=== PATIENT | male | born 1950 | race Caucasian/White ===

== ENCOUNTER → 2016-04-17 | Outpatient (CLI) | payer MEDICARE, OTHER ==
--- NOTE | 2016-04-17 10:31 | US ---
EXAMINATION TYPE: US thyroid st tissue head/neck DATE OF EXAM: 04/17/2016 10:16 AM COMPARISON: 10/19/2015 CLINICAL HISTORY: E04.1 Thyroid Nodule. 6 month follow up GLAND SIZE: Right Lobe: 3.8 x 1.1 x 1.8cm Overall Parenchyma: homogenous Left Lobe: 3.6 x 1.2 x 1.5cm Overall Parenchyma: homogeneous Isthmus Thickness: 0.5 cm NODULES RIGHT: # of nodules measured on right: 1 1. 0.4 X 0.4 x 0.3 cm cystic nodule at the mid pole with well-defined margins. This nodule is wider than tall and shows no intranodular vascularity. Prior size: 0.4 x 0.4 x 0.3cm LEFT: # of nodules measured on left: 0 ISTHMUS: # of nodules measured in the isthmus: 0 IMPRESSION: Bilateral neck scanned, no abnormal lymphadenopathy noted. Stable appearing cystic nodu le seen on the right.
== END ==
LOC: RADUSWWP 10:00
PROVIDERS: ATTEND Family Medicine
DX: E04.1 Nontoxic single thyroid nodule (principal)
CPT/HCPCS: 76536

== ENCOUNTER → 2016-10-13 | Outpatient (CLI) | payer MEDICARE, OTHER ==
--- NOTE | 2016-10-13 15:54 | US ---
EXAMINATION TYPE: US thyroid st tissue head/neck DATE OF EXAM: 10/13/2016 COMPARISON: Previous study dated 04/17/2016. CLINICAL HISTORY: Nodule E04.1. GLAND SIZE: Right Lobe: 3.3 x 1.4 x 1.6 cm Overall Parenchyma: homogenous Left Lobe: 3.9 x 1.1 x 1.6 cm Overall Parenchyma: homogeneous Isthmus Thickness: 0.4 cm NODULES RIGHT: # of nodules measured on right: 1 1. 0.5 X 0.3 x 0.5 cm hypoechoic cystic nodule at the mid pole with well-defined margins; . This n odule is wider than tall and shows . Prior size: 0.4 x 0.4 x 0.3 cm LEFT: # of nodules measured on left: 0 ISTHMUS: # of nodules measured in the isthmus: 0 Bilateral neck scanned, no evidence of lymphadenopathy. Nodule as described IMPRESSION: STABLE RIGHT-SIDED THYROID NODULE.
== END | disposition home or self-care (01) ==
LOC: RADUSWWP 15:18
PROVIDERS: ATTEND Family Medicine
DX: E04.1 Nontoxic single thyroid nodule (principal)
CPT/HCPCS: 76536

== ENCOUNTER → 2017-04-22 | Outpatient (CLI) | payer MEDICARE, OTHER ==
--- NOTE | 2017-04-22 10:45 | US ---
EXAMINATION TYPE: US thyroid st tissue head/neck DATE OF EXAM: 04/22/2017 COMPARISON: US CLINICAL HISTORY: E04.1 Nontoxic Single Thyroid Nodule. GLAND SIZE: Right Lobe: 3.4 x 1.3 x 1.4 cm Overall Parenchyma: homogenous Left Lobe: 2.8 x 1.1 x 1.9 cm Overall Parenchyma: homogeneous Isthmus Thickness: 0.2 cm NODULES RIGHT: # of nodules measured on right: 1 1. 0.5 X 0.3 x 0.5 cm anechoic cystic nodule at the mid pole with well-defined margins. This nodul e is wider than tall and shows no intranodular vascularity. Prior size: 0.5 X 0.3 x 0.5 cm LEFT: # of nodules measured on left: 0 ISTHMUS: # of nodules measured in the isthmus: 0 Bilateral neck scanned, no evidence of lymphadenopathy. 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
== END | disposition home or self-care (01) ==
LOC: RADUSWWP 09:10
PROVIDERS: ATTEND Family Medicine
DX: E04.1 Nontoxic single thyroid nodule (principal)
CPT/HCPCS: 76536

== ENCOUNTER 2017-05-03 07:34 | Day surgery (SDC) | payer MEDICARE, OTHER ==
[2017-04-30 08:51] VITALS: BMI 37.2
[~2017-05-03 07:34] MED LIST: LACTATED RINGERS 1,000 ML IV SCH
[2017-05-03 08:03] VITALS: RESP 16; TEMP 98.2
[2017-05-03] MEDS ORDERED: LIDOCAINE 1% 20 ML VIAL (10MG/ML) FOR IV START INTRADERMA ONE (08:10)
[2017-05-03 08:14] LABS: Glucose,Whole Blood 156 mg/dL (75-99)
[2017-05-03] MEDS ORDERED: PROPOFOL 10 MG/ML 20 ML VIAL IV ONE (08:41)
--- NOTE | 2017-05-03 09:10 | P.PCN ---
Date of Procedure: 05/03/17 Procedure(s) Performed: Procedure: Total colonoscopy. Preoperative diagnosis: Screening for neoplasia. Postoperative diagnosis: Sigmoid diverticulosis with no evidence of acute diverticulitis, strictures, polyps or cancer. Preparation: HalfLytely prep. Sedation: Was provided by anesthesia. Brief clinical history: The patient is a 66-year-old male who is referred for this evaluation for screening for neoplasia age being his risk factor. He had a prior exam around 10 years ago. At this time, he has no abdominal complaints , bleeding or anemia. Procedure: With the patient on his left lateral decubitus position and after informed consent and adequate sedation, the perianal area was inspected and it did not show any fissures or fistulas. There were no masses felt on digital rectal examination. The Olympus CFQ 160L: Video colonoscope was then inserted in the rectum in the usual fashion and advanced to the cecum. There were multiple diverticular orifices seen scattered in the sigmoid with no evidence of acute diverticulitis or strictures. The mucosa appeared healthy. No polyps or tumors were seen. I retroflexed the endoscope in the rectum before the endoscope was withdrawn. The patient tolerated the procedure well. Plan: The patient was reassured. Discussed dietary measures. He will follow up with you as planned and I recommended repeat exam in 10 years.
[2017-05-03 09:28] VITALS: BP 110/68; PULSE 78
== END 2017-05-03 09:51 | disposition home or self-care (01) ==
LOC: ORWHC2ENDO 07:34
DX: Z12.11 Encounter for screening for malignant neoplasm of colon (principal); K57.30 Diverticulosis of large intestine without perforation or abscess without bleeding; I10 Essential (primary) hypertension; E78.5 Hyperlipidemia, unspecified; E11.9 Type 2 diabetes mellitus without complications; E07.9 Disorder of thyroid, unspecified; E66.01 Morbid (severe) obesity due to excess calories; Z79.84 Long term (current) use of oral hypoglycemic drugs; Z79.899 Other long term (current) drug therapy; Z68.37 Body mass index [BMI] 37.0-37.9, adult
CPT/HCPCS: J2704; G0121

== ENCOUNTER 2017-12-01 14:38 | Inpatient (IN) | payer MEDICARE, OTHER ==
[2017-12-01] MEDS ORDERED: SODIUM CHLORIDE 0.9% 1,000 ML IV STA ×2 (15:30)
[2017-12-01 15:45] LABS: Basophils % (A) 0 %; Eosinophils # (A) 0.1 k/uL (0-0.7); Eosinophils % (A) 1 %; HCT 46.1 % (39.0-53.0); HGB 14.7 gm/dL (13.0-17.5); Lymphocytes # (A) 1.5 k/uL (1.0-4.8); Lymphocytes % (A) 15 %; MCH 32.4 pg (25.0-35.0); MCV 101.2 fL (80.0-100.0); Macrocytosis Slight; Mean Platelet Volume 9.1; Monocytes # (A) 0.5 k/uL (0-1.0); Monocytes % (A) 5 %; Neutrophils # (A) 7.8 k/uL (1.3-7.7); Neutrophils % (A) 77 %; Platelet Count 153 k/uL (150-450); RBC 4.56 m/uL (4.30-5.90); RDW 14.1 % (11.5-15.5)
--- NOTE | 2017-12-01 15:58 | ED ---
Arrhythmia/Palpitations HPI <Ronald Cortez - Last Filed: 12/01/17 18:26> - General Source: patient, RN notes reviewed, old records reviewed Mode of arrival: wheelchair Limitations: no limitations <Melani Sandoval - Last Filed: 12/01/17 18:44> - General Chief Complaint: Arrhythmia/Palpitations Stated Complaint: tachycardia Time Seen by Provider: 12/01/17 15:25 - History of Present Illness Initial Comments: Patient is a 67-year-old male presents to return today was 2. of elevated heart rate. He was sent by his PCP. He had an outpatient physical exam today and they found that his heart rate was 140-1 50 bpm. He has no previous cardiac history. He denies any symptoms associated with a high heart rate including dizziness, recent fever or chills, he denies any chest pain. He denies shortness of breath. Patient denies any recent fever, chills, shortness of breath, chest pain, back pain, abdominal pain, nausea vomiting, numbness or tingling, dysuria or hematuria, constipation or diarrhea, headaches or visual changes, or any other current symptoms (Melani Sandoval) - Related Data Home Medications Medication Instructions Recorded Confirmed Atenolol [Tenormin] 25 mg PO BID 04/30/17 12/01/17 Levothyroxine Sodium [Synthroid] 75 mcg PO DAILY 04/30/17 12/01/17 Lovastatin [Mevacor] 40 mg PO DAILY 04/30/17 12/01/17 Multivitamins, Thera [Multivitamin 1 tab PO DAILY 04/30/17 12/01/17 (formulary)] amLODIPine BESYLATE/BENAZEPRIL 1 cap PO DAILY 04/30/17 12/01/17 [Lotrel 5-20 mg Capsule] metFORMIN HCL [Glucophage] 1,000 mg PO BID 04/30/17 12/01/17 Allergies Allergy/AdvReac Type Severity Reaction Status Date / Time No Known Allergies Allergy Verified 12/01/17 15:06 Review of Systems ROS Other: All systems not noted in ROS Statement are negative. <Ronald Cortez - Last Filed: 12/01/17 18:26> ROS Other: All systems not noted in ROS Statement are negative. <Melani Sandoval - Last Filed: 12/01/17 18:44> ROS Statement: Those systems with pertinent positive or pertinent negative responses have been documented in the HPI. Past Medical History Past Medical History: Diabetes Mellitus, Thyroid Disorder Additional Past Medical History / Comment(s): irreglular heartbeat, History of Any Multi-Drug Resistant Organisms: None Reported Past Surgical History: Orthopedic Surgery, Tonsillectomy Additional Past Surgical History / Comment(s): eye surgery for cross eyed, left knee surgery Past Anesthesia/Blood Transfusion Reactions: No Reported Reaction Past Psychological History: No Psychological Hx Reported Smoking Status: Former smoker Past Alcohol Use History: None Reported Past Drug Use History: None Reported - Past Family History Mother Family Medical History: No Reported History <Melani Sandoval - Last Filed: 12/01/17 18:44> General Exam <Ronald Cortez - Last Filed: 12/01/17 18:26> Limitations: no limitations General appearance: alert, in no apparent distress Head exam: Present: atraumatic, normocephalic, normal inspection Eye exam: Present: normal appearance, PERRL, EOMI. Absent: scleral icterus, conjunctival injection, periorbital swelling ENT exam: Present: normal exam, mucous membranes moist Neck exam: Present: normal inspection. Absent: tenderness, meningismus, lymphadenopathy Respiratory exam: Present: normal lung sounds bilaterally. Absent: respiratory distress, wheezes, rales, rhonchi, stridor Cardiovascular Exam: Present: regular rate, normal rhythm, normal heart sounds. Absent: systolic murmur, diastolic murmur, rubs, gallop, clicks GI/Abdominal exam: Present: soft, normal bowel sounds. Absent: distended, tenderness, guarding, rebound, rigid Extremities exam: Present: normal inspection, full ROM, normal capillary refill. Absent: tenderness, pedal edema, joint swelling, calf tenderness Back exam: Present: normal inspection Neurological exam: Present: alert, oriented X3, CN II-XII intact Psychiatric exam: Present: normal affect, normal mood <Melani Sandoval - Last Filed: 12/01/17 18:44> - General Exam Comments Initial Comments: 67-year-old male presents raise department today. He is well-appearing. Appears in no distress. (Melani Sandoval) Vital Signs 12/01/17 12/01/17 12/01/17 14:47 15:25 15:27 Temperature 98.1 F Pulse Rate 144 H 138 H Respiratory 18 16 Rate Blood Pressure 151/94 131/97 O2 Sat by Pulse 98 96 Oximetry 12/01/17 12/01/17 12/01/17 16:06 16:50 17:55 Temperature Pulse Rate 137 H 134 H 140 H Respiratory 18 18 18 Rate Blood Pressure 137/97 136/94 131/97 O2 Sat by Pulse 97 97 95 Oximetry 12/01/17 18:19 Temperature Pulse Rate 122 H Respiratory 18 Rate Blood Pressure 122/96 O2 Sat by Pulse 96 Oximetry Medical Decision Making - Lab Data Result diagrams: 12/01/17 15:25 12/01/17 15:25 <Ronald Cortez - Last Filed: 12/01/17 18:26> - Lab Data Result diagrams: 12/01/17 15:25 12/01/17 15:25 - Radiology Data Radiology results: report reviewed <Melani Sandoval - Last Filed: 12/01/17 18:44> - Medical Decision Making Patient reevaluated by myself, Dr. Cortez. Patient remains tachycardic with a heart rate around 136. Patient updated on results and plan. Case was discussed with practitioner Lesly, covering for Dr. Diaz, who is covering for Dr. Whitney, who will admit for Dr. Mishra. Cardiology will be placed on consult. (Ronald Cortez) Patient 67-year-old male presents risk for asymptomatic tachycardia. Patient's heart rate is 140-1 45 bpm. He denies any chest pain or symptoms associated with this. Patient's labwork was reviewed today and all unremarkable. He did have a mildly elevated D d-dimer. This present stated this did a computed tomography scan of his chest. There is evidence of a thoracic aortic aneurysm measuring 4.4 cm. Again he denies any chest or back pain. Patient continued to be tachycardic despite IV fluids and we did give Patient initially IV dose of Lopressor. After Patient went back to me to be tachycardic in 140 bpm. And the family initiated Cardizem bolus and Cardizem drip. Patient will be admitted to selective floor with consult to cardiology and cardiothoracic surgery. (Melani Sandoval) - Lab Data Lab Results 12/01/17 12/01/17 12/01/17 Range/Units 15:25 15:25 15:25 WBC 10.0 (3.8-10.6) k/uL RBC 4.56 (4.30-5.90) m/uL Hgb 14.7 (13.0-17.5) gm/dL Hct 46.1 (39.0-53.0) % MCV 101.2 H (80.0-100.0) fL MCH 32.4 (25.0-35.0) pg MCHC 32.0 (31.0-37.0) g/dL RDW 14.1 (11.5-15.5) % Plt Count 153 (150-450) k/uL Neutrophils % 77 % Lymphocytes % 15 % Monocytes % 5 % Eosinophils % 1 % Basophils % 0 % Neutrophils # 7.8 H (1.3-7.7) k/uL Lymphocytes # 1.5 (1.0-4.8) k/uL Monocytes # 0.5 (0-1.0) k/uL Eosinophils # 0.1 (0-0.7) k/uL Basophils # 0.0 (0-0.2) k/uL Macrocytosis Slight PT (9.0-12.0) sec INR (<1.2) APTT (22.0-30.0) sec D-Dimer (<0.60) mg/L FEU Sodium 138 (137-145) mmol/L Potassium 4.9 (3.5-5.1) mmol/L Chloride 102 (98-107) mmol/L Carbon Dioxide 24 (22-30) mmol/L Anion Gap 12 mmol/L BUN 17 (9-20) mg/dL Creatinine 0.72 (0.66-1.25) mg/dL Est GFR (CKD-EPI)AfAm >90 (>60 ml/min/1.73 sqM) Est GFR (CKD-EPI)NonAf >90 (>60 ml/min/1.73 sqM) Glucose 137 H (74-99) mg/dL Calcium 9.9 (8.4-10.2) mg/dL Magnesium 1.6 (1.6-2.3) mg/dL Total Bilirubin 0.8 (0.2-1.3) mg/dL AST 25 (17-59) U/L ALT 23 (21-72) U/L Alkaline Phosphatase 54 (38-126) U/L Total Creatine Kinase 47 L (55-170) U/L CK-MB (CK-2) 1.0 (0.0-2.4) ng/mL CK-MB (CK-2) Rel Index 2.1 Troponin I <0.012 (0.000-0.034) ng/mL Total Protein 7.5 (6.3-8.2) g/dL Albumin 4.3 (3.5-5.0) g/dL TSH (0.465-4.680) mIU/L Urine Color Urine Appearance (Clear) Urine pH (5.0-8.0) Ur Specific [place] (1.001-1.035) Urine Protein (Negative) Urine Glucose (UA) (Negative) Urine Ketones (Negative) Urine Blood (Negative) Urine Nitrite (Negative) Urine Bilirubin (Negative) Urine Urobilinogen (<2.0) mg/dL Ur Leukocyte Esterase (Negative) 12/01/17 12/01/17 12/01/17 Range/Units 15:25 15:25 15:25 WBC (3.8-10.6) k/uL RBC (4.30-5.90) m/uL Hgb (13.0-17.5) gm/dL Hct (39.0-53.0) % MCV (80.0-100.0) fL MCH (25.0-35.0) pg MCHC (31.0-37.0) g/dL RDW (11.5-15.5) % Plt Count (150-450) k/uL Neutrophils % % Lymphocytes % % Monocytes % % Eosinophils % % Basophils % % Neutrophils # (1.3-7.7) k/uL Lymphocytes # (1.0-4.8) k/uL Monocytes # (0-1.0) k/uL Eosinophils # (0-0.7) k/uL Basophils # (0-0.2) k/uL Macrocytosis PT 11.2 (9.0-12.0) sec INR 1.2 H (<1.2) APTT 24.4 (22.0-30.0) sec D-Dimer 0.74 H (<0.60) mg/L FEU Sodium (137-145) mmol/L Potassium (3.5-5.1) mmol/L Chloride (98-107) mmol/L Carbon Dioxide (22-30) mmol/L Anion Gap mmol/L BUN (9-20) mg/dL Creatinine (0.66-1.25) mg/dL Est GFR (CKD-EPI)AfAm (>60 ml/min/1.73 sqM) Est GFR (CKD-EPI)NonAf (>60 ml/min/1.73 sqM) Glucose (74-99) mg/dL Calcium (8.4-10.2) mg/dL Magnesium (1.6-2.3) mg/dL Total Bilirubin (0.2-1.3) mg/dL AST (17-59) U/L ALT (21-72) U/L Alkaline Phosphatase (38-126) U/L Total Creatine Kinase (55-170) U/L CK-MB (CK-2) (0.0-2.4) ng/mL CK-MB (CK-2) Rel Index Troponin I (0.000-0.034) ng/mL Total Protein (6.3-8.2) g/dL Albumin (3.5-5.0) g/dL TSH 4.150 (0.465-4.680) mIU/L Urine Color Urine Appearance (Clear) Urine pH (5.0-8.0) Ur Specific [place] (1.001-1.035) Urine Protein (Negative) Urine Glucose (UA) (Negative) Urine Ketones (Negative) Urine Blood (Negative) Urine Nitrite (Negative) Urine Bilirubin (Negative) Urine Urobilinogen (<2.0) mg/dL Ur Leukocyte Esterase (Negative) 12/01/17 Range/Units 16:41 WBC (3.8-10.6) k/uL RBC (4.30-5.90) m/uL Hgb (13.0-17.5) gm/dL Hct (39.0-53.0) % MCV (80.0-100.0) fL MCH (25.0-35.0) pg MCHC (31.0-37.0) g/dL RDW (11.5-15.5) % Plt Count (150-450) k/uL Neutrophils % % Lymphocytes % % Monocytes % % Eosinophils % % Basophils % % Neutrophils # (1.3-7.7) k/uL Lymphocytes # (1.0-4.8) k/uL Monocytes # (0-1.0) k/uL Eosinophils # (0-0.7) k/uL Basophils # (0-0.2) k/uL Macrocytosis PT (9.0-12.0) sec INR (<1.2) APTT (22.0-30.0) sec D-Dimer (<0.60) mg/L FEU Sodium (137-145) mmol/L Potassium (3.5-5.1) mmol/L Chloride (98-107) mmol/L Carbon Dioxide (22-30) mmol/L Anion Gap mmol/L BUN (9-20) mg/dL Creatinine (0.66-1.25) mg/dL Est GFR (CKD-EPI)AfAm (>60 ml/min/1.73 sqM) Est GFR (CKD-EPI)NonAf (>60 ml/min/1.73 sqM) Glucose (74-99) mg/dL Calcium (8.4-10.2) mg/dL Magnesium (1.6-2.3) mg/dL Total Bilirubin (0.2-1.3) mg/dL AST (17-59) U/L ALT (21-72) U/L Alkaline Phosphatase (38-126) U/L Total Creatine Kinase (55-170) U/L CK-MB (CK-2) (0.0-2.4) ng/mL CK-MB (CK-2) Rel Index Troponin I (0.000-0.034) ng/mL Total Protein (6.3-8.2) g/dL Albumin (3.5-5.0) g/dL TSH (0.465-4.680) mIU/L Urine Color Yellow Urine Appearance Clear (Clear) Urine pH 6.5 (5.0-8.0) Ur Specific [place] 1.011 (1.001-1.035) Urine Protein Trace H (Negative) Urine Glucose (UA) Negative (Negative) Urine Ketones Negative (Negative) Urine Blood Negative (Negative) Urine Nitrite Negative (Negative) Urine Bilirubin Negative (Negative) Urine Urobilinogen <2.0 (<2.0) mg/dL Ur Leukocyte Esterase Negative (Negative) 12/01/17 15:59 EKG performed at 1504 shows sinus tachycardia) axis, inferior infarct noted. Ventricularly of 141 bpm. Intervals 144 ms. QRS ration 86 ms. QT QTc is 282/431 ms. 12/01/17 16:01 (Melani Sandoval) - Radiology Data Aneurysm of the ascending aorta. No evidence of pulmonary embolus in. It measures 4.4 cm. No dissection. No mediastinal adenopathy. Multiple cysts in the liver that are 4.27 m. No pericardial effusion. Hypertrophic spurring thoracic spine. No bony process. (Melani Sandoval) Disposition <Ronald Cortez - Last Filed: 12/01/17 18:26> Is patient prescribed a controlled substance at d/c from ED?: No Time of Disposition: 18:44 <Melani Sandoval - Last Filed: 12/01/17 18:44> Clinical Impression: Tachycardia, Thoracic aneurysm without mention of rupture Disposition: ADMITTED IP TO THIS HOSP Condition: Stable Referrals: Edison Mishra DO [Primary Care Provider] - 1-2 days
[2017-12-01 16:11] LABS: ALT 23 U/L (21-72); AST 25 U/L (17-59); Albumin 4.3 g/dL (3.5-5.0); Alkaline Phosphatase 54 U/L (38-126); Anion Gap 12 mmol/L; Blood Urea Nitrogen 17 mg/dL (9-20); Calcium 9.9 mg/dL (8.4-10.2); Carbon Dioxide 24 mmol/L (22-30); Chloride 102 mmol/L (98-107); Creatine Kinase 47 U/L (55-170); Glucose 137 mg/dL (74-99); INR 1.2 (<1.2); Magnesium 1.6 mg/dL (1.6-2.3); Partial Thromboplastin Time 24.4 sec (22.0-30.0); Potassium 4.9 mmol/L (3.5-5.1); Prothrombin Time 11.2 sec (9.0-12.0); Sodium 138 mmol/L (137-145); Total Bilirubin 0.8 mg/dL (0.2-1.3); Total Protein 7.5 g/dL (6.3-8.2)
--- NOTE | 2017-12-01 16:13 | XR ---
EXAMINATION TYPE: XR chest 2V DATE OF EXAM: 12/01/2017 COMPARISON: Prior chest x-ray is unavailable HISTORY: Dysrhythmia TECHNIQUE: Frontal and lateral views of the chest are obtained on 4 images. FINDINGS: There is no focal air space opacity, pleural effusion, or pneumothorax seen. The cardiac silhouette size is within normal limits. Patient is rotated. There are overlying cardiac leads. The osseous structures are intact. IMPRESSION: No acute cardiopulmonary process.
[2017-12-01 16:22] LABS: Troponin I <0.012 ng/mL (0.000-0.034)
[2017-12-01 16:44] LABS: Appearance,Urine Clear (Clear); Bilirubin,Urine Negative (Negative); Blood,Urine Negative (Negative); Color,Urine Yellow; Glucose,Urine (UA) Negative (Negative); Ketones,Urine Negative (Negative); Leukocyte Esterase,Urine Negative (Negative); Nitrite,Urine Negative (Negative); PH, Urine 6.5 (5.0-8.0); Protein,Urine Trace (Negative); Specific Gravity,Urine 1.011 (1.001-1.035); Urobilinogen,Urine <2.0 mg/dL (<2.0)
--- NOTE | 2017-12-01 17:41 | CT ---
EXAMINATION TYPE: CT chest angio for PE DATE OF EXAM: 12/01/2017 COMPARISON: None HISTORY: Rapid heart rate today. CT DLP: 636.9 mGycm Automated exposure control for dose reduction was used. CONTRAST: CT Chest for pulmonary embolism performed with with IV Contrast, patient injected with 100 mL of Isov ue 370. FINDINGS: There are 3-D post processed images. There is mild aneurysm of the ascending aorta measures 4.4 cm. There is no dissection. There is no me diastinal adenopathy. There are no hilar masses. I see no filling defects in the pulmonary arteries. There is normal contrast opacification of the pulmonary arteries. 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 The other lung valerio are clear. There is no evidence of a pulmonary mass. There i s no pleural effusion. There are multiple cysts in the liver that measure up to 4.2 cm. There is no pericardial effusion. Th ere is hypertrophic spurring in the thoracic spine. I see no bony destructive process. IMPRESSION: Aneurysm of the ascending aorta. No evidence of pulmonary embolism.
[2017-12-01] MEDS ORDERED: METOPROLOL TARTRATE 5 MG/5 ML VIAL IVP STA (17:49)
[2017-12-01] MEDS ORDERED: DILTIAZEM DRIP BOLUS FROM BAG 1 MG SOLN IV ONE ×2 (18:40→19:42)
[2017-12-01] MEDS ORDERED: oxyCODONE-APAP 5-325MG 1 EACH TAB PO PRN (18:44)
[2017-12-01] MEDS ORDERED: NALOXONE 0.4 MG/ML 1 ML VIAL IV PRN (18:44)
[2017-12-01] MEDS ORDERED: traMADol 50 MG TAB PO PRN (18:44)
[2017-12-01] MEDS ORDERED: ACETAMINOPHEN TAB 325 MG TAB PO PRN (18:44)
[2017-12-01] MEDS ORDERED: IBUPROFEN 400 MG TAB PO PRN (18:44)
[2017-12-01] MEDS: DILTIAZEM 50 MG in SODIUM CHLORIDE 0.9% 40 ML IV SCH ×2 (18:59→23:59)
[2017-12-01] MEDS ORDERED: SODIUM CHLORIDE 0.9% 1,000 ML IV ONE (19:40)
[2017-12-01 22:48] LABS: Creatine Kinase 53 U/L (55-170)
[2017-12-01 23:01] LABS: Creatine Kinase MB 0.9 ng/mL (0.0-2.4); Troponin I <0.012 ng/mL (0.000-0.034)
[2017-12-02] MEDS: SODIUM CHLORIDE 0.9% 1,000 ML IV SCH ×4 (00:46→22:59)
[2017-12-02] MEDS ORDERED: HEPARIN SODIUM,PORCINE 5,000 UNIT/ML 1 ML VIAL IV ONE (01:25)
[2017-12-02] MEDS ORDERED: HEPARIN SODIUM,PORCINE 5,000 UNIT/ML 1 ML VIAL IV PRN (01:25)
[2017-12-02] MEDS ORDERED: HEPARIN SOD,PORK IN 0.45% NACL 25,000 UNIT in 0.45% NACL 1 500ML.BAG IV SCH ×2 (01:30→01:56)
[2017-12-02] MEDS: HEPARIN SOD PORK IV SCH ×2 (02:08→22:58)
[2017-12-02] MEDS: NACL IV SCH ×2 (02:08→22:58)
[2017-12-02 04:59] LABS: Creatine Kinase 64 U/L (55-170)
[2017-12-02 05:12] LABS: Creatine Kinase MB 1.1 ng/mL (0.0-2.4); Troponin I <0.012 ng/mL (0.000-0.034)
[2017-12-02 06:53] LABS: Glucose,Whole Blood 133 mg/dL (75-99)
[2017-12-02] MEDS: INSULIN ASPART 100 UNIT/ML 1 ML 10 ML VIAL SQ SCH ×4 (06:53→21:13)
--- NOTE | 2017-12-02 09:25 | P.GSCN ---
History of Present Illness Consult date: 12/02/17 Reason for Consult: Ascending aortic aneurysm, surgical recommendations Requesting physician: Ronald Cortez History of present illness: This is a 67-year-old gentleman who follows with Dr. Mishra on an outpatient basis. He has a previous medical history of diabetes, hypothyroidism, hypertension, and previous tobacco dependence. He presented to [facility] emergency room at the request of his primary care physician for tachycardia. At that time the heart rate was in the 140s to 150s and appeared to be sinus, however shortly thereafter rhythm appeared to be atrial flutter. Patient was given bolus of IV Cardizem and started on a drip. He denied any chest pain, shortness of breath, palpitations, syncope, back pain or any other symptoms. He was sent for CTA of the chest which ruled out pulmonary embolism, however he was noted to have an ascending aortic aneurysm 4.4 cm in size per the radiologist read. There is no evidence of dissection. To his knowledge he has never been diagnosed with aortic aneurysm in the past. Cardiothoracic surgery was consulted regarding surgical recommendations. Review of Systems Review of systems was completed and was negative except as noted. - Cardiovascular Reports rapid heart beat Past Medical History Past Medical History: Diabetes Mellitus, Hyperlipidemia, Hypertension, Thyroid Disorder Additional Past Medical History / Comment(s): irreglular heartbeat, hx broken lt knee d/t fall -had sx w/pin in place History of Any Multi-Drug Resistant Organisms: None Reported Past Surgical History: Orthopedic Surgery, Tonsillectomy Additional Past Surgical History / Comment(s): eye surgery for cross eyed, left knee surgery, colonoscopy Past Anesthesia/Blood Transfusion Reactions: No Reported Reaction Additional Past Anesthesia/Blood Transfusion Reaction / Comm: pt stated has never had any blood transfusions Past Psychological History: No Psychological Hx Reported Smoking Status: Former smoker Past Alcohol Use History: None Reported Past Drug Use History: None Reported - Past Family History Mother History Unknown: Yes Family Medical History: No Reported History Father Additional Family Medical History / Comment(s): pt's real dad when pt was 1 years old -no hx known Medications and Allergies Home Medications Medication Instructions Recorded Confirmed Type Atenolol [Tenormin] 25 mg PO BID 04/30/17 12/01/17 History Levothyroxine Sodium [Synthroid] 75 mcg PO DAILY 04/30/17 12/01/17 History Lovastatin [Mevacor] 40 mg PO DAILY 04/30/17 12/01/17 History Multivitamins, Thera [Multivitamin 1 tab PO DAILY 04/30/17 12/01/17 History (formulary)] amLODIPine BESYLATE/BENAZEPRIL 1 cap PO DAILY 04/30/17 12/01/17 History [Lotrel 5-20 mg Capsule] metFORMIN HCL [Glucophage] 1,000 mg PO BID 04/30/17 12/01/17 History Allergies Allergy/AdvReac Type Severity Reaction Status Date / Time No Known Allergies Allergy Verified 12/01/17 15:06 Surgical - Exam Vital Signs Temp Pulse Resp BP Pulse Ox 98.1 F 144 H 18 151/94 98 12/01/17 14:47 12/01/17 14:47 12/01/17 14:47 12/01/17 14:47 12/01/17 14:47 - General well developed, well nourished, no distress, no pain, obese - Eyes PERRL, normal ocular movement - ENT no hearing loss - Neck no masses, no bruits, trachea midline - Respiratory Lungs sounds clear bilaterally. Respirations even, nonlabored. Currently on room air with oxygen saturation 95%. - Cardiovascular S1, S2 present. Irregular rate, rhythm, controlled atrial fibrillation on telemetry. Palpable peripheral pulses bilaterally. No edema present. No calf pain or tenderness noted. - Abdomen Abdomen: soft, non tender, bowel sounds - Genitourinary Deferred - Rectum deferred - Integumentary no rash, no growths, no abnormal pigmentation - Neurologic normal coordination, normal sensation - Musculoskeletal normal gait, normal posture - Psychiatric oriented to time, oriented to person, oriented to place, speech is normal, memory intact Results - Labs 12/01/17 15:25 12/01/17 15:25 Abnormal Lab Results - Last 24 Hours (Table) 12/01/17 12/01/17 12/01/17 Range/Units 15:25 15:25 15:25 MCV 101.2 H (80.0-100.0) fL Neutrophils # 7.8 H (1.3-7.7) k/uL INR (<1.2) APTT (22.0-30.0) sec D-Dimer (<0.60) mg/L FEU Glucose 137 H (74-99) mg/dL POC Glucose (mg/dL) (75-99) mg/dL Total Creatine Kinase 47 L (55-170) U/L Urine Protein (Negative) 12/01/17 12/01/17 12/01/17 Range/Units 15:25 15:25 16:41 MCV (80.0-100.0) fL Neutrophils # (1.3-7.7) k/uL INR 1.2 H (<1.2) APTT (22.0-30.0) sec D-Dimer 0.74 H (<0.60) mg/L FEU Glucose (74-99) mg/dL POC Glucose (mg/dL) (75-99) mg/dL Total Creatine Kinase (55-170) U/L Urine Protein Trace H (Negative) 12/01/17 12/02/17 12/02/17 Range/Units 21:55 06:29 07:00 MCV (80.0-100.0) fL Neutrophils # (1.3-7.7) k/uL INR (<1.2) APTT 32.9 H (22.0-30.0) sec D-Dimer (<0.60) mg/L FEU Glucose (74-99) mg/dL POC Glucose (mg/dL) 133 H (75-99) mg/dL Total Creatine Kinase 53 L (55-170) U/L Urine Protein (Negative) Diabetes panel 12/01/17 Range/Units 15:25 Sodium 138 (137-145) mmol/L Potassium 4.9 (3.5-5.1) mmol/L Chloride 102 (98-107) mmol/L Carbon Dioxide 24 (22-30) mmol/L BUN 17 (9-20) mg/dL Creatinine 0.72 (0.66-1.25) mg/dL Glucose 137 H (74-99) mg/dL Calcium 9.9 (8.4-10.2) mg/dL AST 25 (17-59) U/L ALT 23 (21-72) U/L Alkaline Phosphatase 54 (38-126) U/L Total Protein 7.5 (6.3-8.2) g/dL Albumin 4.3 (3.5-5.0) g/dL Thyroid panel 12/01/17 Range/Units 15:25 TSH 4.150 (0.465-4.680) mIU/L Calcium panel 12/01/17 Range/Units 15:25 Calcium 9.9 (8.4-10.2) mg/dL Albumin 4.3 (3.5-5.0) g/dL Pituitary panel 12/01/17 12/01/17 Range/Units 15:25 15:25 Sodium 138 (137-145) mmol/L Potassium 4.9 (3.5-5.1) mmol/L Chloride 102 (98-107) mmol/L Carbon Dioxide 24 (22-30) mmol/L BUN 17 (9-20) mg/dL Creatinine 0.72 (0.66-1.25) mg/dL Glucose 137 H (74-99) mg/dL Calcium 9.9 (8.4-10.2) mg/dL TSH 4.150 (0.465-4.680) mIU/L Adrenal panel 12/01/17 Range/Units 15:25 Sodium 138 (137-145) mmol/L Potassium 4.9 (3.5-5.1) mmol/L Chloride 102 (98-107) mmol/L Carbon Dioxide 24 (22-30) mmol/L BUN 17 (9-20) mg/dL Creatinine 0.72 (0.66-1.25) mg/dL Glucose 137 H (74-99) mg/dL Calcium 9.9 (8.4-10.2) mg/dL Total Bilirubin 0.8 (0.2-1.3) mg/dL AST 25 (17-59) U/L ALT 23 (21-72) U/L Alkaline Phosphatase 54 (38-126) U/L Total Protein 7.5 (6.3-8.2) g/dL Albumin 4.3 (3.5-5.0) g/dL - Imaging Chest x-ray: report reviewed, image reviewed CT scan - chest: report reviewed, image reviewed EKG: image reviewed Assessment and Plan (1) Ascending aortic aneurysm Current Visit: Yes Status: Acute Code(s): I71.2 - THORACIC AORTIC ANEURYSM, WITHOUT RUPTURE SNOMED Code(s): 896157768 (2) Hypertension Current Visit: Yes Status: Chronic Code(s): I10 - ESSENTIAL (PRIMARY) HYPERTENSION SNOMED Code(s): 62190455 (3) Hyperlipidemia Current Visit: Yes Status: Chronic Code(s): E78.5 - HYPERLIPIDEMIA, UNSPECIFIED SNOMED Code(s): 71640410 (4) Diabetes mellitus Current Visit: Yes Status: Chronic Code(s): E11.9 - TYPE 2 DIABETES MELLITUS WITHOUT COMPLICATIONS SNOMED Code(s): 08949208 (5) Hypothyroid Current Visit: Yes Status: Chronic Code(s): E03.9 - HYPOTHYROIDISM, UNSPECIFIED SNOMED Code(s): 92440104 (6) Tobacco dependence in remission Current Visit: No Status: Resolved Code(s): F17.201 - NICOTINE DEPENDENCE, UNSPECIFIED, IN REMISSION SNOMED Code(s): 396977392 (7) Tachycardia Current Visit: Yes Status: Acute Code(s): R00.0 - TACHYCARDIA, UNSPECIFIED SNOMED Code(s): 6390690 Plan: The patient was seen and examined at the bedside with Dr. Juárez. Chart/ diagnostics were reviewed. The patient is asymptomatic at this time, there is no dissection of the aneurysm, and risks of surgery outweigh the risk of dissection or rupture at this size, therefore surgery is not warranted. We would recommend good blood pressure control with beta blockers. Echocardiogram was ordered to assess aortic valve. Would recommend a follow-up CT of the chest in 6 months. If aneurysm should continue to grow patient should follow up with us for surgical discussion. Medical management per primary care service. Heart rhythm management per cardiology. Thank you for this consult. Please call us with any questions. Time with Patient: Greater than 30
--- NOTE | 2017-12-02 10:50 | P.CRDCN ---
History of Present Illness Consult date: 12/02/17 Requesting physician: Nicole Diaz Consult reason: atrial flutter Chief complaint: tachycardia History of present illness: this is a 67-year-old gentleman with history of hypertension, diabetes , hypothyroidism, hyperlipidemia, who was at his primary care physician's office for routine visit, it was noted that his heart was racing fast and for this reason he was advised to come to the hospital.the patient himself denies any palpitations, no shortness of breath, no dizziness or lightheadedness.EKG on arrival here showed atrial flutter with rapid ventricular response.chest x- ray did not reveal any acute cardiopulmonary process.CTA of the chest was performed which revealed aneurysm of the ascending aorta with no evidence of pulmonary embolism. Ascending aorta measured 4.4 cm, no evidence of dissection. Blood pressure on arrival here 150/90 with a heart rate of 140, 98% on room air.White blood cell count is normal, hemoglobin 14.7, platelet count 153. D-dimer 0.7. Sodium 138, potassium 4.9, BUN 17, creatinine 0.7.magnesium 1.6. Troponins negative 3.patient is currently on IV Cardizem drip as well as IV heparin. He was given 5 mg of IV push metoprolol on arrival here. Continues to be in atrial flutter, heart rate under much better control at this time. Echocardiogram with Doppler study has been performed results are yet pending. Past Medical History Past Medical History: Diabetes Mellitus, Hyperlipidemia, Hypertension, Thyroid Disorder Additional Past Medical History / Comment(s): irreglular heartbeat, hx broken lt knee d/t fall -had sx w/pin in place History of Any Multi-Drug Resistant Organisms: None Reported Past Surgical History: Orthopedic Surgery, Tonsillectomy Additional Past Surgical History / Comment(s): eye surgery for cross eyed, left knee surgery, colonoscopy Past Anesthesia/Blood Transfusion Reactions: No Reported Reaction Additional Past Anesthesia/Blood Transfusion Reaction / Comment(s): pt stated has never had any blood transfusions Past Psychological History: No Psychological Hx Reported Smoking Status: Former smoker Past Alcohol Use History: None Reported Past Drug Use History: None Reported - Past Family History Mother History Unknown: Yes Family Medical History: No Reported History Father Additional Family Medical History / Comment(s): pt's real dad when pt was 1 years old -no hx known Medications and Allergies Home Medications Medication Instructions Recorded Confirmed Type Atenolol [Tenormin] 25 mg PO BID 04/30/17 12/01/17 History Levothyroxine Sodium [Synthroid] 75 mcg PO DAILY 04/30/17 12/01/17 History Lovastatin [Mevacor] 40 mg PO DAILY 04/30/17 12/01/17 History Multivitamins, Thera [Multivitamin 1 tab PO DAILY 04/30/17 12/01/17 History (formulary)] amLODIPine BESYLATE/BENAZEPRIL 1 cap PO DAILY 04/30/17 12/01/17 History [Lotrel 5-20 mg Capsule] metFORMIN HCL [Glucophage] 1,000 mg PO BID 04/30/17 12/01/17 History Allergies Allergy/AdvReac Type Severity Reaction Status Date / Time No Known Allergies Allergy Verified 12/01/17 15:06 Physical Exam Vitals: Vital Signs Temp Pulse Pulse Resp BP BP Pulse Ox 12/02/17 03:31 91 18 12/02/17 03:28 98.0 F 91 18 184/69 95 12/02/17 00:00 97.9 F 73 18 143/68 99 12/01/17 23:58 71 18 119/60 95 12/01/17 22:54 71 18 121/73 95 12/01/17 22:22 71 16 121/65 95 12/01/17 21:27 76 18 112/67 95 12/01/17 20:45 76 12/01/17 20:01 79 18 121/72 95 12/01/17 19:44 140 H 16 103/82 95 12/01/17 19:13 109 H 12/01/17 19:02 97.8 F 140 H 18 129/86 96 12/01/17 18:37 140 H 12/01/17 18:19 122 H 18 122/96 96 12/01/17 17:55 140 H 18 131/97 95 12/01/17 16:50 134 H 18 136/94 97 12/01/17 16:06 137 H 18 137/97 97 12/01/17 15:27 131/97 12/01/17 15:25 138 H 16 96 12/01/17 14:47 98.1 F 144 H 18 151/94 98 Intake and Output 12/01/17 12/02/17 12/02/17 22:59 06:59 14:59 Intake Total 50 Balance 50 Intake: Intake, IV Titration 50 Amount Diltiazem 50 mg In Sodium 50 Chloride 0.9% 40 ml @ 10 MG/HR 10 mls/hr IV .Q5H [facility] Rx#:[id number] Other: Voiding Method Toilet # Voids 3 Weight 131.2 kg PHYSICAL EXAMINATION: GENERAL:67-year-old gentleman in no acute distress at the time of my examination HEENT: Head is atraumatic, normocephalic. Pupils equal, round. Sclera anicteric. Conjunctiva are clear. Mucous membranes of the mouth are moist. Neck is supple. There is no elevated jugular venous pressure.no carotid bruit. HEART EXAMINATION: [Heart S1, [id number] irregular. No murmur or gallop heard.] CHEST EXAMINATION:[ Lungs are clear to auscultation and precussion. No chest wall tenderness is noted on palpation or with deep breathing.] ABDOMEN: [ Soft, nontender. Bowel sounds are heard. No organomegaly noted]. EXTREMITIES:[ 2+ peripheral pulses with no evidence of peripheral edema and no calf tenderness noted]. NEUROLOGIC [patient is awake, alert and oriented X3.] . Results 12/01/17 15:25 12/01/17 15:25 Cardiac Enzymes 12/01/17 12/01/17 12/01/17 Range/Units 15:25 15:25 21:55 AST 25 (17-59) U/L CK-MB (CK-2) 1.0 0.9 (0.0-2.4) ng/mL Troponin I <0.012 <0.012 (0.000-0.034) ng/mL 12/02/17 Range/Units 04:01 AST (17-59) U/L CK-MB (CK-2) 1.1 (0.0-2.4) ng/mL Troponin I <0.012 (0.000-0.034) ng/mL Coagulation 12/01/17 12/02/17 Range/Units 15:25 07:00 PT 11.2 (9.0-12.0) sec APTT 24.4 32.9 H (22.0-30.0) sec CBC 12/01/17 Range/Units 15:25 WBC 10.0 (3.8-10.6) k/uL RBC 4.56 (4.30-5.90) m/uL Hgb 14.7 (13.0-17.5) gm/dL Hct 46.1 (39.0-53.0) % Plt Count 153 (150-450) k/uL Comprehensive Metabolic Panel 12/01/17 Range/Units 15:25 Sodium 138 (137-145) mmol/L Potassium 4.9 (3.5-5.1) mmol/L Chloride 102 (98-107) mmol/L Carbon Dioxide 24 (22-30) mmol/L BUN 17 (9-20) mg/dL Creatinine 0.72 (0.66-1.25) mg/dL Glucose 137 H (74-99) mg/dL Calcium 9.9 (8.4-10.2) mg/dL AST 25 (17-59) U/L ALT 23 (21-72) U/L Alkaline Phosphatase 54 (38-126) U/L Total Protein 7.5 (6.3-8.2) g/dL Albumin 4.3 (3.5-5.0) g/dL Current Medications Generic Name Dose Route Start Last Admin Trade Name Freq PRN Reason Stop Dose Admin Acetaminophen 650 mg 12/01/17 18:44 Tylenol Tab PO Q6HR PRN Mild Pain or Fever > 100.5 Heparin Sodium (Porcine) 0 unit 12/02/17 01:25 Heparin IV PER PROTOCOL PRN Low PTT Protocol Diltiazem HCl 50 mg/ Sodium 50 mls @ 10 mls/hr 12/01/17 18:45 12/01/17 23:59 Chloride IV 5 mg/hr .Q5H ANNABEL 5 mls/hr Administration 10 MG/HR Sodium Chloride 1,000 mls @ 100 mls/hr 12/01/17 18:45 12/02/17 05:59 Saline 0.9% IV Not Given .Q10H ANNABEL Heparin Sodium/Sodium Chloride 500 mls @ 20 mls/hr 12/02/17 01:57 12/02/17 02 :08 25,000 unit/ Sodium Chloride IV 7.73 units/kg/hr .Q24H ANNABEL 20 mls/hr Administration Protocol Ibuprofen 400 mg 12/01/17 18:44 Motrin PO Q6HR PRN Mild Pain or Fever > 100.5 Insulin Aspart 0 unit 12/02/17 07:30 12/02/17 06:53 Novolog SQ Not Given ACHS [facility] Protocol Naloxone HCl 0.2 mg 12/01/17 18:44 Narcan IV Q2M PRN Opioid Reversal Oxycodone/Acetaminophen 1 each 12/01/17 18:44 Percocet 5-325 PO Q4HR PRN Severe Pain Tramadol HCl 50 mg 12/01/17 18:44 Ultram PO Q6H PRN Moderate Pain Intake and Output 12/01/17 12/02/17 12/02/17 22:59 06:59 14:59 Intake Total 50 Balance 50 Intake: Intake, IV Titration 50 Amount Diltiazem 50 mg In Sodium 50 Chloride 0.9% 40 ml @ 10 MG/HR 10 mls/hr IV .Q5H [facility] Rx#:[id number] Other: Voiding Method Toilet # Voids 3 Weight 131.2 kg 12/01/17 15:25 12/01/17 15:25 EKG Interpretations (text) EKG shows atrial flutter with a rapid ventricular response Assessment and Plan Plan: assessment and plan #1atrial flutter with rapid ventricular response, new onset #2 hypertension #3 hyperlipidemia #4 diabetes #5 hypothyroidism #6 ascending aortic aneurysm measuring 4.4 cm. plan We'll review the patient's echocardiogram with Doppler study. Check TSH level. Patient has also been educated regarding the importance of anticoagulation for stroke prevention. We will look into one of the newer anticoagulants.patient is unsure exactly of when he went into this rhythm as he is asymptomatic. We'll start the patient on a beta brandyn and attempts to wean off the Cardizem. Discontinue Motrin. Further recommendations to Follow. DNP note has been reviewed, I agree with a documented findings and plan of care. Patient was seen and examined.
[2017-12-02] MEDS: DILTIAZEM 50 MG in SODIUM CHLORIDE 0.9% 40 ML IV SCH ×4 (11:12→21:00)
[2017-12-02 11:24] LABS: Hemoglobin A1C 6.9 % (4.0-6.0)
[2017-12-02 11:59] LABS: Glucose,Whole Blood 119 mg/dL (75-99)
[2017-12-02] MEDS: METOPROLOL TARTRATE 25 MG TAB PO SCH ×2 (12:16→20:15)
[2017-12-02 16:49] LABS: Glucose,Whole Blood 107 mg/dL (75-99)
--- NOTE | 2017-12-02 17:34 | ECHOF ---
Referral Reason:assess aortic valve, ascending aortic aneurysm MEASUREMENTS -------- HEIGHT: 182.9 cm WEIGHT: 131.1 kg BP: RVIDd: 3.2 cm (< 3.3) IVSd: 1.3 cm (0.6 - 1.1) LVIDd: 4.9 cm (3.9 - 5.3) LVPWd: 1.6 cm (0.6 - 1.1) IVSs: 1.7 cm LVIDs: 4.2 cm LVPWs: 1.5 cm LA Diam: 3.8 cm (2.7 - 3.8) LAESV Index (A-L): 45.57 ml/m Ao Diam: 3.5 cm (2.0 - 3.7) AV Cusp: 1.8 cm (1.5 - 2.6) LA Diam: 4.2 cm (2.7 - 3.8) MV EXCURSION: 20.304 mm (> 18.000) MV EF SLOPE: 107 mm/s (70 - 150) EPSS: 0.2 cm MV E Ramana: 0.81 m/s MV DecT: 173 ms MV A Ramana: 0.68 m/s MV E/A Ratio: 1.19 RAP: 5.00 mmHg RVSP: 27.75 mmHg FINDINGS -------- Undetermined rhythm. This was a technically adequate study. Morbid Obesity The left ventricular size is normal. Left ventricular wall thickness is normal. Overall left vent ricular systolic function is low-normal with, an EF between 50 - 55 %. The right ventricle is normal in size. The left atrium is mildly dilated. LA is severely dilated >40 ml/m2 The right atrial size is normal. There is mild aortic valve sclerosis. There is no evidence of aortic regurgitation. Mild mitral annular calcification present. Mild mitral regurgitation is present. Trace tricuspid regurgitation present. There is no evidence of pulmonary hypertension. The right ventricular systolic pressure, as measured by Doppler, is 27.75mmHg. There is no pulmonic regurgitation present. The aortic root size is normal. Echo free space represents a pericardial fat pad. CONCLUSIONS -------- 1. This was a technically adequate study. 2. Morbid Obesity 3. The left ventricular size is normal. 4. Left ventricular wall thickness is normal. 5. Overall left ventricular systolic function is low-normal with, an EF between 50 - 55 %. 6. The right ventricle is normal in size. 7. The left atrium is mildly dilated. 8. LA is severely dilated >40 ml/m2 9. The right atrial size is normal. 10. There is mild aortic valve sclerosis. 11. Mild mitral annular calcification present. 12. Mild mitral regurgitation is present. 13. Trace tricuspid regurgitation present. 14. There is no evidence of pulmonary hypertension. 15. The right ventricular systolic pressure, as measured by Doppler, is 27.75mmHg. 16. There is no pulmonic regurgitation present. 17. The aortic root size is normal. 18. Echo free space represents a pericardial fat pad. TECHNICAL PRODUCER: Cesilia Bernabe RDCS
[2017-12-02 21:04] LABS: Glucose,Whole Blood 115 mg/dL (75-99)
--- NOTE | 2017-12-03 01:35 | P.HPIM ---
History of Present Illness H&P Date: 12/02/17 Chief Complaint: Atrial fibrillation Patient is a 67-year-old male with a known history of Diabetes Mellitus, Hyperlipidemia, Hypertension, Thyroid Disorder was sent from PCPs office due to irregular heartbeat. Otherwise patient denied any chest pain or shortness of breath. No palpitations. No headache or dizziness or lightheadedness. Patient denied any recent illnesses or sick contacts at home. Denied any history of prior heart disease. No history of stent placement. No fever no chills. No cough is from production. Patient is a former smoker otherwise. EKG showed atrial flutter with rapid ventricular rate on admission. D-dimer 0.7 CT angiogram of the chest showed ascending aortic aneurysm measuring 4.4 cm Chest x-ray showed no acute cardiopulmonary process. TSH 4.7 Troponin 3 negative. UA negative Review of Systems Constitutional: Patient denies any fever or chills . No generalized weakness or weight loss. Abdomen: Patient denied nausea vomiting and diarrhea and abdominal pain. Cardiovascular: Patient denies any chest pain or short of breath no palpitations. Respiratory: patient denied any cough is from production. No shortness of breath Neurologic: Patient denied any numbness or tingling headache. Musculoskeletal: Patient denies any complaints of joint swelling or deformity. Skin: Negative Psychiatric: Negative Endocrine: No heat or cold intolerance. No recent weight gain. Genitourinary: No dysuria or hematuria. All other 14 point ROS negative except the above Past Medical History Past Medical History: Diabetes Mellitus, Hyperlipidemia, Hypertension, Thyroid Disorder Additional Past Medical History / Comment(s): irreglular heartbeat, hx broken lt knee d/t fall -had sx w/pin in place History of Any Multi-Drug Resistant Organisms: None Reported Past Surgical History: Orthopedic Surgery, Tonsillectomy Additional Past Surgical History / Comment(s): eye surgery for cross eyed, left knee surgery, colonoscopy Past Anesthesia/Blood Transfusion Reactions: No Reported Reaction Additional Past Anesthesia/Blood Transfusion Reaction / Comment(s): pt stated has never had any blood transfusions Past Psychological History: No Psychological Hx Reported Smoking Status: Former smoker Past Alcohol Use History: None Reported Past Drug Use History: None Reported - Past Family History Mother History Unknown: Yes Family Medical History: No Reported History Father Additional Family Medical History / Comment(s): pt's real dad when pt was 1 years old -no hx known Medications and Allergies Home Medications Medication Instructions Recorded Confirmed Type Atenolol [Tenormin] 25 mg PO BID 04/30/17 12/01/17 History Levothyroxine Sodium [Synthroid] 75 mcg PO DAILY 04/30/17 12/01/17 History Lovastatin [Mevacor] 40 mg PO DAILY 04/30/17 12/01/17 History Multivitamins, Thera [Multivitamin 1 tab PO DAILY 04/30/17 12/01/17 History (formulary)] amLODIPine BESYLATE/BENAZEPRIL 1 cap PO DAILY 04/30/17 12/01/17 History [Lotrel 5-20 mg Capsule] metFORMIN HCL [Glucophage] 1,000 mg PO BID 04/30/17 12/01/17 History Allergies Allergy/AdvReac Type Severity Reaction Status Date / Time No Known Allergies Allergy Verified 12/01/17 15:06 Physical Exam Vitals: Vital Signs Temp Pulse Pulse Resp BP BP Pulse Ox 12/02/17 03:31 91 18 12/02/17 03:28 98.0 F 91 18 184/69 95 12/02/17 00:00 97.9 F 73 18 143/68 99 12/01/17 23:58 71 18 119/60 95 12/01/17 22:54 71 18 121/73 95 12/01/17 22:22 71 16 121/65 95 12/01/17 21:27 76 18 112/67 95 12/01/17 20:45 76 12/01/17 20:01 79 18 121/72 95 12/01/17 19:44 140 H 16 103/82 95 12/01/17 19:13 109 H 12/01/17 19:02 97.8 F 140 H 18 129/86 96 12/01/17 18:37 140 H 12/01/17 18:19 122 H 18 122/96 96 12/01/17 17:55 140 H 18 131/97 95 12/01/17 16:50 134 H 18 136/94 97 12/01/17 16:06 137 H 18 137/97 97 12/01/17 15:27 131/97 12/01/17 15:25 138 H 16 96 12/01/17 14:47 98.1 F 144 H 18 151/94 98 Intake and Output 12/01/17 12/02/17 12/02/17 22:59 06:59 14:59 Intake Total 50 253.333 Balance 50 253.333 Intake: Intake, IV Titration 50 253.333 Amount Diltiazem 50 mg In Sodium 50 50 Chloride 0.9% 40 ml @ 10 MG/HR 10 mls/hr IV .Q5H ANNA[facility] Rx#:[id number] Heparin Sod,Pork in 0.45% 203.333 NaCl 25,000 unit In 0.45 % NaCl 500 500ml.bag @ 20 mls/hr IV .Q24H ANNA[facility]EL Rx#: [id number] Other: Voiding Method Toilet # Voids 3 Weight 131.2 kg PHYSICAL EXAMINATION: Patient is lying in the bed comfortably, no acute distress, awake alert and oriented.. HEENT: Normocephalic. Neck is supple. Pupils reactive. Nostrils clear. Oral cavity is moist. Ears reveal no drainage. Neck reveals no JVD, carotid bruits, or thyromegaly. CHEST EXAMINATION: Trachea is central. Symmetrical expansion. Lung valerio clear to auscultation and percussion. CARDIAC: Normal S1, S2 with no gallops. No murmurs ABDOMEN: Soft. Bowel sounds normal. No organomegaly. No abdominal bruits. Extremities: reveal no edema. No clubbing or cyanosis Neurologically awake, alert, oriented x3 with well-coordinated movements. No focal deficits noted Skin: No rash or skin lesions. Psychiatric: Coperative. Nonsuicidal Musculoskeletal: No joint swelling or deformity. Normal range of motion. Results CBC & Chem 7: 12/01/17 15:25 12/01/17 15:25 Labs: Abnormal Lab Results - Last 24 Hours (Table) 12/01/17 12/01/17 12/01/17 Range/Units 15:25 15:25 15:25 MCV 101.2 H (80.0-100.0) fL Neutrophils # 7.8 H (1.3-7.7) k/uL INR (<1.2) APTT (22.0-30.0) sec D-Dimer (<0.60) mg/L FEU Glucose 137 H (74-99) mg/dL POC Glucose (mg/dL) (75-99) mg/dL Hemoglobin A1c (4.0-6.0) % Total Creatine Kinase 47 L (55-170) U/L TSH (0.465-4.680) mIU/L Urine Protein (Negative) 12/01/17 12/01/17 12/01/17 Range/Units 15:25 15:25 16:41 MCV (80.0-100.0) fL Neutrophils # (1.3-7.7) k/uL INR 1.2 H (<1.2) APTT (22.0-30.0) sec D-Dimer 0.74 H (<0.60) mg/L FEU Glucose (74-99) mg/dL POC Glucose (mg/dL) (75-99) mg/dL Hemoglobin A1c (4.0-6.0) % Total Creatine Kinase (55-170) U/L TSH (0.465-4.680) mIU/L Urine Protein Trace H (Negative) 12/01/17 12/02/17 12/02/17 Range/Units 21:55 06:29 07:00 MCV (80.0-100.0) fL Neutrophils # (1.3-7.7) k/uL INR (<1.2) APTT 32.9 H (22.0-30.0) sec D-Dimer (<0.60) mg/L FEU Glucose (74-99) mg/dL POC Glucose (mg/dL) 133 H (75-99) mg/dL Hemoglobin A1c (4.0-6.0) % Total Creatine Kinase 53 L (55-170) U/L TSH (0.465-4.680) mIU/L Urine Protein (Negative) 12/02/17 12/02/17 12/02/17 Range/Units 07:00 07:00 11:55 MCV (80.0-100.0) fL Neutrophils # (1.3-7.7) k/uL INR (<1.2) APTT (22.0-30.0) sec D-Dimer (<0.60) mg/L FEU Glucose (74-99) mg/dL POC Glucose (mg/dL) 119 H (75-99) mg/dL Hemoglobin A1c 6.9 H (4.0-6.0) % Total Creatine Kinase (55-170) U/L TSH 4.740 H (0.465-4.680) mIU/L Urine Protein (Negative) Thrombosis Risk Factor Assmnt - DVT/VTE Prophylaxis DVT/VTE Prophylaxis: Pharmacologic Prophylaxis ordered - Choose All That Apply Any of the Below Risk Factors Present?: Yes Each Factor Represents 1 point: Obesity (BMI >25) Other Risk Factors: Yes Each Risk Factor Represents 2 Points: Age 61-74 years Other congenital or acquired thrombophilia - If yes, enter type in comment: No Thrombosis Risk Factor Assessment Total Risk Factor Score: 3 Thrombosis Risk Factor Assessment Level: Moderate Risk Assessment and Plan Assessment: New onset atrial flutter with RVR Ascending aortic aneurysm measuring 4.4 cm Hypertension Diabetes type 2 Hypothyroidism Previous history of smoking Hyperlipidemia DVT prophylaxis Plan: Patient will be continued on telemetry monitoring. Patient was started on Cardizem drip and heparin drip. TSH level is 4.7 is slightly elevated. Will check free T4 level. Start back on levothyroxine 75 g daily. Cardiology is on board. 2-D echocardiogram was ordered. Further recommendations based on the clinical course. Time with Patient: Greater than 30
[2017-12-03] MEDS: DILTIAZEM 50 MG in SODIUM CHLORIDE 0.9% 40 ML IV SCH ×3 (02:07→08:37)
[2017-12-03 06:18] LABS: Glucose,Whole Blood 104 mg/dL (75-99)
[2017-12-03] MEDS: INSULIN ASPART 100 UNIT/ML 1 ML 10 ML VIAL SQ SCH ×2 (06:28→12:00)
[2017-12-03] MEDS ORDERED: LEVOTHYROXINE 75 MCG TAB PO SCH (06:30)
[2017-12-03 07:13] LABS: Basophils # (A) 0.1 k/uL (0-0.2); Basophils % (A) 1 %; Eosinophils # (A) 0.2 k/uL (0-0.7); Eosinophils % (A) 2 %; HCT 41.3 % (39.0-53.0); HGB 13.6 gm/dL (13.0-17.5); Lymphocytes # (A) 1.9 k/uL (1.0-4.8); Lymphocytes % (A) 22 %; MCH 33.4 pg (25.0-35.0); MCHC 32.9 g/dL (31.0-37.0); MCV 101.4 fL (80.0-100.0); Macrocytosis Slight; Mean Platelet Volume 10.4; Monocytes # (A) 0.6 k/uL (0-1.0); Monocytes % (A) 7 %; Neutrophils # (A) 5.6 k/uL (1.3-7.7); Neutrophils % (A) 66 %; Platelet Count 133 k/uL (150-450); RBC 4.07 m/uL (4.30-5.90); WBC 8.5 k/uL (3.8-10.6)
[2017-12-03 07:24] LABS: INR 1.2 (<1.2); Partial Thromboplastin Time 56.5 sec (22.0-30.0); Prothrombin Time 11.5 sec (9.0-12.0)
[2017-12-03 07:26] VITALS: RESP 16
[2017-12-03] MEDS: SODIUM CHLORIDE 0.9% 1,000 ML IV SCH (08:38)
[2017-12-03] MEDS: METOPROLOL TARTRATE 25 MG TAB PO SCH (08:38)
[2017-12-03 10:30] LABS: T4, Free (Free Thyroxine) 1.22 ng/dL (0.78-2.19)
--- NOTE | 2017-12-03 11:19 | P.PN ---
Subjective Progress Note Date: 12/03/17 Principal diagnosis: Ascending aortic aneurysm. New-onset atrial fibrillation. Previous medical history of diabetes, hypothyroidism, hypertension, and previous tobacco dependence. Patient's currently sitting up in a recliner on the cardiac stepdown unit in no acute distress. Denies any chest pain, shortness of breath, palpitations, dizziness. He remains on IV Cardizem and heparin. He has no new complaints at this time. Objective - Vital Signs Vital signs: Vital Signs Temp 98.6 F 12/03/17 07:18 Pulse 56 L 12/03/17 07:18 Resp 16 12/03/17 07:18 BP 151/87 12/03/17 07:18 Pulse Ox 95 12/03/17 07:18 Intake & Output 12/02/17 12/03/17 12/03/17 18:59 06:59 18:59 Intake Total 3202.011 6230.141 240 Balance 5316.342 3458.141 240 Weight 130.1 kg Intake: Intake, IV Titration 2253.151 2862.141 Amount Diltiazem 50 mg In Sodium 50 53.500 Chloride 0.9% 40 ml @ 10 MG/HR 10 mls/hr IV .Q5H [facility] Rx#:[id number] Heparin Sod,Pork in 0.45% 107 NaCl 25,000 unit In 0.45 % NaCl 1 500ml.bag @ 20 mls/hr IV .Q24H [facility]NA[facility] Rx#: [id number] Heparin Sod,Pork in 0.45% 387.342 223.641 NaCl 25,000 unit In 0.45 % NaCl 500 500ml.bag @ 20 mls/hr IV .Q24H [facility]NA[facility] Rx#: [id number] Sodium Chloride 0.9% 1, 1100 000 ml @ 100 mls/hr IV . Q10H [facility]NA[facility] Rx#:[id number] Sodium Chloride 0.9% 1, 700 000 ml @ 999 mls/hr IV . Q1H1M ONE Rx#:[id number] Oral 240 240 Other: Voiding Method Toilet # Voids 1 - Constitutional General appearance: Present: cooperative, no acute distress, obese - Respiratory Details: Lungs sounds diminished bilaterally. Respirations even, nonlabored. Currently on room air with oxygen saturation 96%. - Cardiovascular Details: S1, S2 present. Irregular rate and rhythm, A. fib/flutter on telemetry. Palpable peripheral pulses bilaterally. No edema present. No calf pain or tenderness noted. - Gastrointestinal Gastrointestinal Comment(s): Abdomen soft, nontender, nondistended. Active bowel sounds present 4 quadrants. Tolerating diet. - Genitourinary Genitourinary Comment(s): Continues to void clear, yellow urine. - Integumentary Integumentary Comment(s): Skin is warm and dry with evidence of good perfusion. - Neurologic Neurologic: Present: CNII-XII intact - Musculoskeletal Musculoskeletal: Present: gait normal, strength equal bilaterally - Psychiatric Psychiatric: Present: A&O x's 3, appropriate affect, intact judgment & insight - Allied health notes Allied health notes reviewed: nursing - Labs CBC & Chem 7: 12/03/17 06:39 12/01/17 15:25 Labs: Abnormal Lab Results - Last 24 Hours (Table) 12/02/17 12/02/17 12/02/17 Range/Units 07:00 07:00 11:55 RBC (4.30-5.90) m/uL MCV (80.0-100.0) fL Plt Count (150-450) k/uL INR (<1.2) APTT (22.0-30.0) sec POC Glucose (mg/dL) 119 H (75-99) mg/dL Hemoglobin A1c 6.9 H (4.0-6.0) % TSH 4.740 H (0.465-4.680) mIU/L 12/02/17 12/02/17 12/02/17 Range/Units 16:47 18:03 21:02 RBC (4.30-5.90) m/uL MCV (80.0-100.0) fL Plt Count (150-450) k/uL INR (<1.2) APTT 38.1 H (22.0-30.0) sec POC Glucose (mg/dL) 107 H 115 H (75-99) mg/dL Hemoglobin A1c (4.0-6.0) % TSH (0.465-4.680) mIU/L 12/03/17 12/03/17 12/03/17 Range/Units 00:57 06:17 06:39 RBC 4.07 L (4.30-5.90) m/uL MCV 101.4 H (80.0-100.0) fL Plt Count 133 L (150-450) k/uL INR (<1.2) APTT 81.8 H (22.0-30.0) sec POC Glucose (mg/dL) 104 H (75-99) mg/dL Hemoglobin A1c (4.0-6.0) % TSH (0.465-4.680) mIU/L 12/03/17 12/03/17 Range/Units 06:39 06:39 RBC (4.30-5.90) m/uL MCV (80.0-100.0) fL Plt Count (150-450) k/uL INR 1.2 H (<1.2) APTT 56.5 H (22.0-30.0) sec POC Glucose (mg/dL) (75-99) mg/dL Hemoglobin A1c (4.0-6.0) % TSH 5.400 H (0.465-4.680) mIU/L - Imaging and Cardiology Transthoracic echocardiogram reviewed. Assessment and Plan (1) Ascending aortic aneurysm Current Visit: Yes Status: Acute Code(s): I71.2 - THORACIC AORTIC ANEURYSM, WITHOUT RUPTURE SNOMED Code(s): 919495143 (2) Hypertension Current Visit: Yes Status: Chronic Code(s): I10 - ESSENTIAL (PRIMARY) HYPERTENSION SNOMED Code(s): 17397946 (3) Hyperlipidemia Current Visit: Yes Status: Chronic Code(s): E78.5 - HYPERLIPIDEMIA, UNSPECIFIED SNOMED Code(s): 75750913 (4) Diabetes mellitus Current Visit: Yes Status: Chronic Code(s): E11.9 - TYPE 2 DIABETES MELLITUS WITHOUT COMPLICATIONS SNOMED Code(s): 13570808 (5) Hypothyroid Current Visit: Yes Status: Chronic Code(s): E03.9 - HYPOTHYROIDISM, UNSPECIFIED SNOMED Code(s): 26493127 (6) Tobacco dependence in remission Current Visit: No Status: Resolved Code(s): F17.201 - NICOTINE DEPENDENCE, UNSPECIFIED, IN REMISSION SNOMED Code(s): 822874532 (7) Tachycardia Current Visit: Yes Status: Acute Code(s): R00.0 - TACHYCARDIA, UNSPECIFIED SNOMED Code(s): 1178071 Plan: 1. Transthoracic echocardiogram reviewed. No aortic root dilatation noted, no aortic insufficiency. 2. Ascending aortic aneurysm measures 4 cm by our measurement. 3. No surgical intervention at this time. 4. We will recommend good blood pressure control with beta brandyn therapy. 5. Patient has should have follow-up CT in 6 months. He may follow in the office with cardiothoracic surgery to review the results. 6. Medical management per primary care service. Heart rhythm management per cardiology. 7. May be discharged home from our standpoint when okay with other consultants. 8. Will continue to see on an as needed basis. Please call us with any questions. Time with Patient: Greater than 30
[2017-12-03 12:08] LABS: Glucose,Whole Blood 103 mg/dL (75-99)
[2017-12-03 12:24] VITALS: BP 140/79; PULSE 57; TEMP 98.4
--- NOTE | 2017-12-03 12:29 | P.PN ---
Subjective This is a 67-year-old gentleman with history of hypertension, diabetes , hypothyroidism, hyperlipidemia, who was at his primary care physician's office for routine visit, it was noted that his heart was racing fast and for this reason he was advised to come to the hospital.the patient himself denies any palpitations, no shortness of breath, no dizziness or lightheadedness.EKG on arrival here showed atrial flutter with rapid ventricular response.chest x- ray did not reveal any acute cardiopulmonary process.CTA of the chest was performed which revealed aneurysm of the ascending aorta with no evidence of pulmonary embolism. Ascending aorta measured 4.4 cm, no evidence of dissection. Blood pressure on arrival here 150/90 with a heart rate of 140, 98% on room air.White blood cell count is normal, hemoglobin 14.7, platelet count 153. D-dimer 0.7. Sodium 138, potassium 4.9, BUN 17, creatinine 0.7.magnesium 1.6. Troponins negative 3.patient is currently on IV Cardizem drip as well as IV heparin. He was given 5 mg of IV push metoprolol on arrival here. Continues to be in atrial flutter, heart rate under much better control at this time. Echocardiogram with Doppler study has been performed results are yet pending. 12/03/2017 Echocardiogram with Doppler study was performed which revealed a normal left ventricular systolic function. IV Cardizem has been discontinued, patient is currently on Lopressor 25 mg 1 tablet daily. He has also been approved for xarelto so we will discontinue the IV heparin and initiate xarelto 20 mg daily. Patient continues to be in atrial fibrillation, heart rate mostly in the 50s. Objective - Vital Signs Vital signs: Vital Signs Temp 98.6 F 12/03/17 07:18 Pulse 56 L 12/03/17 07:18 Resp 16 12/03/17 07:18 BP 151/87 12/03/17 07:18 Pulse Ox 95 12/03/17 07:18 Intake & Output 12/02/17 12/03/17 12/03/17 18:59 06:59 18:59 Intake Total 0251.899 0390.141 240 Balance 3027.549 5118.141 240 Weight 130.1 kg Intake: Intake, IV Titration 1156.291 4655.141 Amount Diltiazem 50 mg In Sodium 50 53.500 Chloride 0.9% 40 ml @ 10 MG/HR 10 mls/hr IV .Q5H [facility]NA[facility] Rx#:[id number] Heparin Sod,Pork in 0.45% 107 NaCl 25,000 unit In 0.45 % NaCl 1 500ml.bag @ 20 mls/hr IV .Q24H [facility]NA[facility] Rx#: [id number] Heparin Sod,Pork in 0.45% 387.342 223.641 NaCl 25,000 unit In 0.45 % NaCl 500 500ml.bag @ 20 mls/hr IV .Q24H [facility]NA[facility]EL Rx#: [id number] Sodium Chloride 0.9% 1, 1100 000 ml @ 100 mls/hr IV . Q10H [facility]NA[facility] Rx#:[id number] Sodium Chloride 0.9% 1, 700 000 ml @ 999 mls/hr IV . Q1H1M ONE Rx#:[id number] Oral 240 240 Other: Voiding Method Toilet # Voids 1 - Exam PHYSICAL EXAMINATION: GENERAL:67-year-old gentleman in no acute distress at the time of my examination HEENT: Head is atraumatic, normocephalic. Pupils equal, round. Sclera anicteric. Conjunctiva are clear. Mucous membranes of the mouth are moist. Neck is supple. There is no elevated jugular venous pressure.no carotid bruit. HEART EXAMINATION: [Heart S1, O3Ipitpurrswj irregular. No murmur or gallop heard.] CHEST EXAMINATION:[ Lungs are clear to auscultation and precussion. No chest wall tenderness is noted on palpation or with deep breathing.] ABDOMEN: [ Soft, nontender. Bowel sounds are heard. No organomegaly noted]. EXTREMITIES:[ 2+ peripheral pulses with no evidence of peripheral edema and no calf tenderness noted]. NEUROLOGIC [patient is awake, alert and oriented X3.] - Labs CBC & Chem 7: 12/03/17 06:39 12/01/17 15:25 Labs: Abnormal Lab Results - Last 24 Hours (Table) 12/02/17 12/02/17 12/02/17 Range/Units 16:47 18:03 21:02 RBC (4.30-5.90) m/uL MCV (80.0-100.0) fL Plt Count (150-450) k/uL INR (<1.2) APTT 38.1 H (22.0-30.0) sec POC Glucose (mg/dL) 107 H 115 H (75-99) mg/dL TSH (0.465-4.680) mIU/L 12/03/17 12/03/17 12/03/17 Range/Units 00:57 06:17 06:39 RBC 4.07 L (4.30-5.90) m/uL MCV 101.4 H (80.0-100.0) fL Plt Count 133 L (150-450) k/uL INR (<1.2) APTT 81.8 H (22.0-30.0) sec POC Glucose (mg/dL) 104 H (75-99) mg/dL TSH (0.465-4.680) mIU/L 12/03/17 12/03/17 12/03/17 Range/Units 06:39 06:39 11:52 RBC (4.30-5.90) m/uL MCV (80.0-100.0) fL Plt Count (150-450) k/uL INR 1.2 H (<1.2) APTT 56.5 H (22.0-30.0) sec POC Glucose (mg/dL) 103 H (75-99) mg/dL TSH 5.400 H (0.465-4.680) mIU/L Assessment and Plan Plan: assessment and plan #1atrial flutter with rapid ventricular response, new onset #2 hypertension #3 hyperlipidemia #4 diabetes #5 hypothyroidism #6 ascending aortic aneurysm measuring 4.4 cm. plan From cardiology's perspective, we'll discontinue the IV heparin and start the patient on xarelto. IV Cardizem has also been discontinued we will continue metoprolol 25 mg one tablet by mouth twice a day. Patient may be able to be discharged home from our perspective, follow-up appointment will be made in the office with Dr. Carter post discharge. DNP note has been reviewed, I agree with a documented findings and plan of care. Patient was seen and examined.
[2017-12-03] MEDS ORDERED: RIVAROXABAN 20 MG TAB PO SCH (17:30)
== END 2017-12-03 15:16 | disposition home or self-care (01) | DRG 310 ==
LOC: EC 14:38 → 3SCARD 18:28
PROVIDERS: ADMIT Hospitalist; ATTEND Hospitalist
DX: I48.92 Unspecified atrial flutter (principal); I48.91 Unspecified atrial fibrillation; I71.2 Thoracic aortic aneurysm, without rupture; R00.0 Tachycardia, unspecified; E11.9 Type 2 diabetes mellitus without complications; I10 Essential (primary) hypertension; E78.5 Hyperlipidemia, unspecified; E03.9 Hypothyroidism, unspecified; F17.201 Nicotine dependence, unspecified, in remission; Z79.84 Long term (current) use of oral hypoglycemic drugs; Z79.890 Hormone replacement therapy; Z79.899 Other long term (current) drug therapy
CPT/HCPCS: 36415; 71046; 71275; 80053; 81003; 82550; 82553; 83036; 83735; 84439; 84443; 84484; 85025; 85379; 85610; 85730; 93005; 93306; 96361; 96365; 96375; 96376; 99285

== ENCOUNTER → 2018-01-07 | Outpatient (CLI) | payer MEDICARE, OTHER ==
[2018-01-07 08:44] LABS: HCT 45.2 % (39.0-53.0); HGB 14.4 gm/dL (13.0-17.5); MCHC 31.9 g/dL (31.0-37.0); MCV 103.6 fL (80.0-100.0); Macrocytosis Slight; Mean Platelet Volume 9.3; Platelet Count 151 k/uL (150-450); RBC 4.36 m/uL (4.30-5.90); RDW 14.1 % (11.5-15.5); WBC 8.6 k/uL (3.8-10.6)
[2018-01-07 08:50] LABS: Anion Gap 9 mmol/L; Blood Urea Nitrogen 22 mg/dL (9-20); Carbon Dioxide 29 mmol/L (22-30); Chloride 103 mmol/L (98-107); Potassium 5.4 mmol/L (3.5-5.1); Sodium 141 mmol/L (137-145)
== END | disposition home or self-care (01) ==
LOC: LABPAT 07:41
PROVIDERS: ATTEND Internal Medicine Interventional Cardiology
DX: Z01.812 Encounter for preprocedural laboratory examination (principal); I10 Essential (primary) hypertension; E78.2 Mixed hyperlipidemia; E11.9 Type 2 diabetes mellitus without complications
CPT/HCPCS: 36415; 80051; 82565; 84520; 85027

== ENCOUNTER 2018-01-21 07:31 | Day surgery (SDC) | payer MEDICARE, OTHER ==
[2018-01-19 09:09] VITALS: BMI 35.9
[~2018-01-21 07:31] MED LIST changes: +SODIUM CHLORIDE 0.9% 1,000 ML IV SCH
[2018-01-21 08:08] VITALS: TEMP 98.1
[2018-01-21 08:26] LABS: Glucose,Whole Blood 149 mg/dL (75-99)
[2018-01-21] MEDS ORDERED: PROPOFOL 10 MG/ML 20 ML VIAL IV ONE (09:59)
--- NOTE | 2018-01-21 10:26 | CE ---
CARDIAC ELECTROPHYSIOLOGY REPORT DATE OF SERVICE: 01/21/2018 PERFORMING PHYSICIAN: MD Jun, Snubber. PROCEDURE PERFORMED: Cardioversion. INDICATION: Atrial flutter/atrial fibrillation. LEVEL OF SEDATION: Deep sedation was performed with MANAGER EDITORIAL in the room. PROCEDURE DESCRIPTION: After performing a GERA and left atrial appendage, thrombus was ruled out. We proceed with a cardioversion. The patient converted from atrial fibrillation to normal sinus mechanism using 200 joules on first attempt. CONCLUSION: Successful cardioversion of atrial fibrillation to normal sinus mechanism using 200 joules on first attempt. MMODL / IJN: [id number] /
--- NOTE | 2018-01-21 10:33 | ECHOT ---
TRANSESOPHAGEAL ECHOCARDIOGRAM DATE OF SERVICE: 01/21/2018 PERFORMING PHYSICIAN: MD Jun, Reeling Machine Operator. PROCEDURE PERFORMED: Transesophageal echocardiogram. INDICATION: This is a pleasant 67-year-old gentleman who was diagnosed recently with atrial flutter/atrial fibrillation, which is new to him. He does have hypertension, dyslipidemia, and obesity. He was brought today to undergo a cardioversion. The GERA is to rule out any intracardiac thrombus before the cardioversion. COMPLICATION: None. LEVEL OF SEDATION: Deep sedation was performed with TEXTILES AND CLOTHING TEACHER in the room. PROCEDURE DESCRIPTION: After obtaining an informed consent, explaining the procedure, benefits, risks, complications and alternatives, the patient was brought to the transesophageal echocardiogram suite. A pulse oximetry and heart rate monitors were attached to the patient prior to the procedure. The patient's throat was sprayed using lidocaine locally. Following that, the patient was turned into left lateral position. A bite guard was placed and the patient was then sedated with the above doses of Versed and fentanyl in divided doses. Following that, the transesophageal echocardiogram probe was advanced through the bite guard into the mid esophagus where 2-D echocardiogram images as well as color Doppler images of various cardiac structures were obtained. We evaluated the interatrial septum using 2-D echocardiogram, color Doppler, and contrast study. The procedure was completed. There were no complications. FINDINGS: The left ventricular dimension and systolic function appeared to be within normal limits. The ejection fraction appeared to be in the range of 55% to 60%. The right ventricle is of normal size and function. The left atrium appeared to be moderately dilated. Left atrial appendage appeared to be free from any thrombus. The interatrial septum appeared to be intact without any evidence of shunt. The aortic valve is trileaflet valve with mild aortic insufficiency and no aortic stenosis. The mitral valve seems to be thickened with moderate MR. There was moderate tricuspid regurgitation seen. CONCLUSION: 1. Normal left atrial appendage without any evidence of thrombus. 2. Intact interatrial septum without any evidence of shunt. 3. Normal left ventricular dimension and systolic function. 4. Moderate to severe dilatation of the left atrium. 5. Aortic sclerosis without stenosis with mild insufficiency. 6. Thickened mitral valve leaflets with moderate mitral regurgitation. 7. Moderate tricuspid regurgitation. 8. No evidence of pericardial effusion. MMODL / IJN: [id number] /
[2018-01-21 11:04] VITALS: RESP 18
[2018-01-21 11:38] VITALS: BP 125/66; PULSE 74
== END 2018-01-21 11:45 | disposition home or self-care (01) ==
LOC: CATHCVL 07:31
PROVIDERS: ATTEND Internal Medicine Interventional Cardiology
DX: I08.3 Combined rheumatic disorders of mitral, aortic and tricuspid valves (principal); I48.3 Typical atrial flutter; E78.5 Hyperlipidemia, unspecified; E11.9 Type 2 diabetes mellitus without complications; Z79.01 Long term (current) use of anticoagulants; Z79.84 Long term (current) use of oral hypoglycemic drugs; Z79.890 Hormone replacement therapy; Z79.899 Other long term (current) drug therapy
CPT/HCPCS: 93312; 93320; 93325; 92960; 84132; J2704

== ENCOUNTER → 2018-05-02 | Outpatient (CLI) | payer MEDICARE, OTHER ==
[2018-05-02 16:56] LABS: HCT 43.4 % (39.0-53.0); HGB 13.9 gm/dL (13.0-17.5); MCH 32.1 pg (25.0-35.0); MCV 100.4 fL (80.0-100.0); Macrocytosis Slight; Mean Platelet Volume 10.5; Platelet Count 145 k/uL (150-450); RBC 4.32 m/uL (4.30-5.90); RDW 14.1 % (11.5-15.5); WBC 8.9 k/uL (3.8-10.6)
[2018-05-02 17:05] LABS: Anion Gap 8 mmol/L; Blood Urea Nitrogen 18 mg/dL (9-20); Carbon Dioxide 29 mmol/L (22-30); Chloride 102 mmol/L (98-107); Potassium 5.3 mmol/L (3.5-5.1); Sodium 139 mmol/L (137-145)
== END | disposition home or self-care (01) ==
LOC: LABPAT 16:06
PROVIDERS: ATTEND Internal Medicine Interventional Cardiology
DX: Z01.812 Encounter for preprocedural laboratory examination (principal); I10 Essential (primary) hypertension; I48.0 Paroxysmal atrial fibrillation
CPT/HCPCS: 36415; 80051; 82565; 84520; 85027

== ENCOUNTER → 2018-05-03 | Outpatient (CLI) | payer MEDICARE, OTHER ==
--- NOTE | 2018-05-03 11:20 | US ---
EXAMINATION TYPE: US thyroid st tissue head/neck DATE OF EXAM: 05/03/2018 COMPARISON: US 10/13/2016 CLINICAL HISTORY: E04.1 Nontoxic single thyroid nodule. Difficult exam due to patient body habitus GLAND SIZE: Right Lobe: 4.2 x 1.4 x 4.3 cm Overall Parenchyma: heterogenous Left Lobe: 3.4 x 1.0 x 1.4 cm Overall Parenchyma: heterogeneous Isthmus Thickness: 0.3 cm NODULES RIGHT: # of nodules measured on right: 1 1. 0.4 X 0.3 x 0.4 cm hypoechoic cystic nodule at the mid pole with well-defined margins. This nod ule is wider than tall and shows no intranodular vascularity. Prior size: 0.5 x 0.3 x 0.5 cm LEFT: # of nodules measured on left: 0 ISTHMUS: # of nodules measured in the isthmus: 0 Bilateral neck scanned, no evidence of lymphadenopathy. IMPRESSION: Solitary subcentimeter right thyroid nodule is similar to the prior. No new nodules are s een.
== END ==
LOC: RADUSWWP 10:07
PROVIDERS: ATTEND Family Medicine
DX: E04.1 Nontoxic single thyroid nodule (principal)
CPT/HCPCS: 76536

== ENCOUNTER 2018-05-16 10:35 | Day surgery (SDC) | payer MEDICARE, OTHER ==
[2018-05-06 11:38] VITALS: BMI 38.2
[~2018-05-16 10:35] MED LIST changes: +ALPRAZolam 0.25 MG TAB PO PRN; +ASPIRIN 325 MG TAB PO ONE; -LACTATED RINGERS 1,000 ML IV SCH; +NITROGLYCERIN SL TABS 0.4 MG TAB SUBLINGUAL PRN; -SODIUM CHLORIDE 0.9% 1,000 ML IV SCH; +SODIUM CHLORIDE 0.9% 1,000 ML in EMPTY BAG 1 BAG IV ONE
[2018-05-16] MEDS ORDERED: SODIUM CHLORIDE 0.9% 1,000 ML IV ONE (11:23)
[2018-05-16 11:29] LABS: Glucose,Whole Blood 141 mg/dL (75-99)
[2018-05-16 11:39] VITALS: TEMP 98.2
[2018-05-16] MEDS ORDERED: VERAPAMIL 2.5 MG/ML 2 ML AMP ONE (11:48)
[2018-05-16] MEDS ORDERED: HEPARIN SODIUM 1,000 UN/ML (10ML VL) ONE (11:48)
[2018-05-16] MEDS ORDERED: LIDOCAINE 1% INJ 10MG/ML (20 ML MDV) ONE (11:48)
[2018-05-16] MEDS ORDERED: MIDAZOLAM 2 MG/2 ML VIAL IV ONE (12:29)
[2018-05-16] MEDS ORDERED: LIDOCAINE 1% INJ 10MG/ML (20 ML MDV) SQ ONE (12:31)
[2018-05-16] MEDS: VERAPAMIL SYRINGE (5 MG/10 ML) INTRAARTER ONE ×2 (12:31→12:40)
[2018-05-16] MEDS ORDERED: HEPARIN SODIUM 1,000 UN/ML (10ML VL) IV ONE (12:33)
[2018-05-16] MEDS ORDERED: IOPAMIDOL-370 125ML BTL INJ ONE (12:39)
[2018-05-16] MEDS ORDERED: RX INFO: IV CONTRAST WAS GIVEN 1 EACH MISC MISCELLANE PRN (12:50)
[2018-05-16] MEDS ORDERED: SODIUM CHLORIDE 0.9% 1,000 ML IV SCH (13:00)
--- NOTE | 2018-05-16 13:06 | LTR ---
May 16, 2018 Re: Tito Alcantara Dear Dr. Mishra: Mr. Tito Alcantara underwent today a heart catheterization and that revealed normal coronaries. I want to thank you for allowing me to participate in his care and please do not hesitate to call if you have any questions or concerns. Sincerely, MD AYESHA March / KIAH: [id number] /
--- NOTE | 2018-05-16 13:06 | CC ---
CARDIAC CATHETERIZATION REPORT DATE OF SERVICE: May 16, 2018 PERFORMING PHYSICIAN: Ronen Barahona MD, asphalt engineer. PROCEDURE PERFORMED: Selective right and left coronary angiogram. INDICATION: This is a 67-year-old gentleman with history of hypertension, dyslipidemia, and paroxysmal atrial fibrillation as well as diabetes who underwent recently a stress test and that revealed an anterior ischemia. Because of that, a heart catheterization was advised. APPROACH: Right radial artery. COMPLICATION: None. LEVEL OF SEDATION: Moderate with sedation length of 11 minutes. PROCEDURE DESCRIPTION: After obtaining an informed consent, the patient was brought to cardiac laborer [facility]. The right radial artery was cannulated using micropuncture technique and the micropuncture wire passed easily then I placed a 5-Vietnamese sheath in the right radial artery. After that I gave the patient 2 mg of verapamil IA and 10,000 units of heparin IV. I did selective right and left coronary angiogram using JR4 and JL3.5 catheters. The procedure was completed without any complication. SELECTIVE CORONARY ANGIOGRAM: 1. The right coronary artery is a large caliber vessel. It is a dominant vessel and appears to be angiographically normal. Distally, it bifurcates into PDA and PLV branches, both appeared to be angiographically normal. 2. The left main is angiographically normal. It bifurcates into left circumflex and left anterior descending artery. 3. The circumflex is a large caliber vessel and it is a nondominant vessel. The left circumflex is normal. It gives rise in the midportion into first and second obtuse marginal branches and they appeared to be angiographically normal. 4. The LAD: The LAD appeared to be angiographically normal. In the midportion it appeared to have what seems to be myocardial bridging. CONCLUSION: 1. Normal coronary angiogram. 2. Myocardial bridging of the mid LAD. POSTPROCEDURE MANAGEMENT: 1. Medical treatment. 2. Follow up with the patient. MMODL / IJN: [id number] /
[2018-05-16 14:40] VITALS: BP 122/59; PULSE 67; RESP 16
== END 2018-05-16 17:40 | disposition home or self-care (01) ==
LOC: CATHCVL 10:35
PROVIDERS: ATTEND Internal Medicine Interventional Cardiology
DX: I48.0 Paroxysmal atrial fibrillation (principal); I20.0 Unstable angina; I10 Essential (primary) hypertension; E78.5 Hyperlipidemia, unspecified; E78.00 Pure hypercholesterolemia, unspecified; E11.9 Type 2 diabetes mellitus without complications; R94.39 Abnormal result of other cardiovascular function study; E66.3 Overweight; Z79.01 Long term (current) use of anticoagulants; Z79.84 Long term (current) use of oral hypoglycemic drugs; Z79.899 Other long term (current) drug therapy; Z79.890 Hormone replacement therapy; Z68.38 Body mass index [BMI] 38.0-38.9, adult
CPT/HCPCS: 93454; 84132; C1769; C1894; J2250; J2001; J1644; Q9967

== ENCOUNTER → 2018-11-01 | Outpatient (CLI) | payer MEDICARE, OTHER ==
--- NOTE | 2018-11-01 16:00 | US ---
EXAMINATION TYPE: US thyroid st tissue head/neck DATE OF EXAM: 11/01/2018 COMPARISON: Thyroid MAY 03, 2018 AND OLDER STUDIES. CLINICAL HISTORY: E04.1 Thyroid nodule. follow up exam GLAND SIZE: Right Lobe: 3.8 x 1.1 x 1.9 cm Overall Parenchyma: homogenous Left Lobe: 3.2 x 1.0 x 1.3 cm Overall Parenchyma: homogeneous Isthmus Thickness: 0.3 cm NODULES RIGHT: # of nodules measured on right: 0 LEFT: # of nodules measured on left: 0 ISTHMUS: # of nodules measured in the isthmus: 0 Bilateral neck scanned, no evidence of lymphadenopathy. Subcentimeter nodule, seen previously on the right, was 0.4cm and unchanged from previous exam Homogeneous small sized thyroid with small right-sided nodule redemonstrated. IMPRESSION: As above. No new or enlarging nodules are seen.
== END | disposition home or self-care (01) ==
LOC: RADUSWWP 13:52
PROVIDERS: ATTEND Family Medicine
DX: E04.1 Nontoxic single thyroid nodule (principal)
CPT/HCPCS: 76536

== ENCOUNTER → 2018-12-05 | Outpatient (CLI) | payer MEDICARE, OTHER ==
[2018-12-05 14:21] LABS: African American GFR (CKD) >90 (>60 ml/min/1.73 sqM); Anion Gap 9 mmol/L; Blood Urea Nitrogen 14 mg/dL (9-20); Carbon Dioxide 29 mmol/L (22-30); Chloride 103 mmol/L (98-107); Non-African American GFR(CKD) 80 (>60 ml/min/1.73 sqM); Potassium 5.1 mmol/L (3.5-5.1); Sodium 141 mmol/L (137-145)
[2018-12-05 14:42] LABS: HCT 37.7 % (39.0-53.0); HGB 12.7 gm/dL (13.0-17.5); MCH 34.1 pg (25.0-35.0); MCHC 33.8 g/dL (31.0-37.0); MCV 101.1 fL (80.0-100.0); Macrocytosis Slight; Mean Platelet Volume 8.6; Platelet Count 138 k/uL (150-450); RBC 3.73 m/uL (4.30-5.90); RDW 13.8 % (11.5-15.5); WBC 9.7 k/uL (3.8-10.6)
== END | disposition home or self-care (01) ==
LOC: LABPAT 12:34
PROVIDERS: ATTEND Internal Medicine Interventional Cardiology
DX: Z01.812 Encounter for preprocedural laboratory examination (principal); I48.0 Paroxysmal atrial fibrillation
CPT/HCPCS: 36415; 80051; 82565; 84520; 85027

== ENCOUNTER 2018-12-07 09:56 | Day surgery (SDC) | payer MEDICARE, OTHER ==
[2018-12-05 17:18] VITALS: BMI 38.5
[~2018-12-07 09:56] MED LIST changes: -ALPRAZolam 0.25 MG TAB PO PRN; -ASPIRIN 325 MG TAB PO ONE; -NITROGLYCERIN SL TABS 0.4 MG TAB SUBLINGUAL PRN; +SODIUM CHLORIDE 0.9% 1,000 ML IV SCH; -SODIUM CHLORIDE 0.9% 1,000 ML in EMPTY BAG 1 BAG IV ONE
[2018-12-07 10:17] VITALS: BP 179/92; PULSE 71; RESP 16; TEMP 98.2
== END 2018-12-07 11:10 | disposition home or self-care (01) ==
LOC: CATHCVL 09:56
PROVIDERS: ATTEND Internal Medicine Interventional Cardiology
DX: Z53.8 Procedure and treatment not carried out for other reasons (principal)

== ENCOUNTER → 2019-07-11 | Outpatient (CLI) | payer MEDICARE, OTHER ==
--- NOTE | 2019-07-11 15:29 | US ---
EXAMINATION TYPE: US thyroid st tissue head/neck DATE OF EXAM: 07/11/2019 COMPARISON: Prior ultrasound 11/01/2018 CLINICAL HISTORY: E04.1 nontoxic single thyroid nodule. GLAND SIZE: Right Lobe: 4.3 x 1.4 x 1.4 cm Overall Parenchyma: heterogenous Left Lobe: 3.5 x 1.0 x 1.9 cm Overall Parenchyma: heterogeneous Isthmus Thickness: 0.3 cm NODULES RIGHT: # of nodules measured on right: 0 LEFT: # of nodules measured on left: 0 ISTHMUS: # of nodules measured in the isthmus: 0 Bilateral neck scanned, no evidence of lymphadenopathy. Subcentimeter cyst noted 4mm on right, seen previously at 4 mm. IMPRESSION: Essentially stable exam. Correlate for underlying thyroiditis
== END | disposition home or self-care (01) ==
LOC: RADUSWWP 14:36
PROVIDERS: ATTEND Family Medicine
DX: E04.1 Nontoxic single thyroid nodule (principal)
CPT/HCPCS: 76536